=== PATIENT | female | born 1940 | race Caucasian/White ===

== ENCOUNTER → 2018-04-08 | Outpatient (CLI) | payer OTHER, BC | LOC: BHLMT 10:45 | PROVIDERS: ATTEND Internal Medicine Cardiovascular Disease | DX: I35.0 Nonrheumatic aortic (valve) stenosis (principal); I10 Essential (primary) hypertension | CPT/HCPCS: 93306-PO ==

== ENCOUNTER → 2018-05-29 | Outpatient (CLI) | payer OTHER, BC | LOC: BHLMT 09:30 | PROVIDERS: ATTEND Internal Medicine Interventional Cardiology | DX: I35.0 Nonrheumatic aortic (valve) stenosis (principal); I05.0 Rheumatic mitral stenosis; I10 Essential (primary) hypertension | CPT/HCPCS: 78452; 93017; A9500; J2785 ==